=== PATIENT | male | born 1970 | race Caucasian/White ===

== ENCOUNTER → 2018-09-11 | Outpatient (CLI) | payer BC ==
[~2018-09-11] MED LIST: COLLAGENASE OINTMENT 30 GM TUBE ONE; LIDOCAINE/PRILOCAINE 2.5-2.5% KIT ONE
== END ==
LOC: WCC 11:07
PROVIDERS: ATTEND Podiatrist Foot & Ankle Surgery
DX: I70.245 Atherosclerosis of native arteries of left leg with ulceration of other part of foot (principal); L97.529 Non-pressure chronic ulcer of other part of left foot with unspecified severity; I82.4Z1 Acute embolism and thrombosis of unspecified deep veins of right distal lower extremity; G71.01 Duchenne or Becker muscular dystrophy; I70.79 Other atherosclerosis of other type of bypass graft(s) of the extremities; Z89.021 Acquired absence of right finger(s); Z89.511 Acquired absence of right leg below knee

== ENCOUNTER → 2018-09-12 | Outpatient (CLI) | payer BC | LOC: CARD 15:52 | PROVIDERS: ATTEND Podiatrist Foot & Ankle Surgery | DX: I87.2 Venous insufficiency (chronic) (peripheral) (principal) | CPT/HCPCS: 93926 ==

== ENCOUNTER → 2018-09-25 | Outpatient (CLI) | payer BC | LOC: WCC 07:20 | PROVIDERS: ATTEND Podiatrist Foot & Ankle Surgery | DX: I70.245 Atherosclerosis of native arteries of left leg with ulceration of other part of foot (principal); L97.529 Non-pressure chronic ulcer of other part of left foot with unspecified severity; G71.01 Duchenne or Becker muscular dystrophy; I70.79 Other atherosclerosis of other type of bypass graft(s) of the extremities; I82.4Z1 Acute embolism and thrombosis of unspecified deep veins of right distal lower extremity; Z89.021 Acquired absence of right finger(s); Z89.511 Acquired absence of right leg below knee ==

== ENCOUNTER → 2018-10-09 | Outpatient (CLI) | payer BC | LOC: WCC 12:40 | PROVIDERS: ATTEND Podiatrist Foot & Ankle Surgery | DX: I70.245 Atherosclerosis of native arteries of left leg with ulceration of other part of foot (principal); I82.4Z1 Acute embolism and thrombosis of unspecified deep veins of right distal lower extremity; L97.529 Non-pressure chronic ulcer of other part of left foot with unspecified severity; G71.01 Duchenne or Becker muscular dystrophy; I70.79 Other atherosclerosis of other type of bypass graft(s) of the extremities; Z89.021 Acquired absence of right finger(s); Z89.511 Acquired absence of right leg below knee ==

== ENCOUNTER → 2018-10-16 | Outpatient (CLI) | payer BC | LOC: WCC 11:46 | PROVIDERS: ATTEND Podiatrist Foot & Ankle Surgery | DX: I70.245 Atherosclerosis of native arteries of left leg with ulceration of other part of foot (principal); L97.529 Non-pressure chronic ulcer of other part of left foot with unspecified severity; G71.01 Duchenne or Becker muscular dystrophy; I70.79 Other atherosclerosis of other type of bypass graft(s) of the extremities; I82.4Z1 Acute embolism and thrombosis of unspecified deep veins of right distal lower extremity; Z89.021 Acquired absence of right finger(s); Z89.511 Acquired absence of right leg below knee ==

== ENCOUNTER → 2018-10-23 | Outpatient (CLI) | payer BC ==
[~2018-10-23] MED LIST changes: +LIDOCAINE VISC 2% SOLN 15 ML UDC ONE; -LIDOCAINE/PRILOCAINE 2.5-2.5% KIT ONE
== END ==
LOC: WCC 07:52
PROVIDERS: ATTEND Podiatrist Foot & Ankle Surgery
DX: I70.245 Atherosclerosis of native arteries of left leg with ulceration of other part of foot (principal); I70.79 Other atherosclerosis of other type of bypass graft(s) of the extremities; L97.529 Non-pressure chronic ulcer of other part of left foot with unspecified severity; I82.4Z1 Acute embolism and thrombosis of unspecified deep veins of right distal lower extremity; G71.01 Duchenne or Becker muscular dystrophy; Z89.021 Acquired absence of right finger(s); Z89.511 Acquired absence of right leg below knee

== ENCOUNTER → 2018-10-30 | Outpatient (CLI) | payer BC | LOC: WCC 10:32 | PROVIDERS: ATTEND Podiatrist Foot & Ankle Surgery | DX: I70.245 Atherosclerosis of native arteries of left leg with ulceration of other part of foot (principal); I70.79 Other atherosclerosis of other type of bypass graft(s) of the extremities; L97.529 Non-pressure chronic ulcer of other part of left foot with unspecified severity; G71.01 Duchenne or Becker muscular dystrophy; I82.4Z1 Acute embolism and thrombosis of unspecified deep veins of right distal lower extremity; Z89.021 Acquired absence of right finger(s); Z89.511 Acquired absence of right leg below knee ==

== ENCOUNTER → 2018-11-14 | Outpatient (CLI) | payer BC ==
[~2018-11-14] MED LIST changes: -LIDOCAINE VISC 2% SOLN 15 ML UDC ONE; +LIDOCAINE/PRILOCAINE 2.5-2.5% KIT ONE; +MUPIROCIN 2% OINT 22 GM TUBE ONE
== END ==
LOC: WCC 08:23
PROVIDERS: ATTEND Family Medicine
DX: I70.245 Atherosclerosis of native arteries of left leg with ulceration of other part of foot (principal); L97.529 Non-pressure chronic ulcer of other part of left foot with unspecified severity; I82.4Z1 Acute embolism and thrombosis of unspecified deep veins of right distal lower extremity; I70.79 Other atherosclerosis of other type of bypass graft(s) of the extremities; G71.01 Duchenne or Becker muscular dystrophy; Z89.021 Acquired absence of right finger(s); Z89.511 Acquired absence of right leg below knee